=== PATIENT | male | born 1970 | race Caucasian/White ===

== ENCOUNTER 2017-04-08 17:54 | Emergency (ER) | payer OTHER ==
[2017-04-08 17:59] VITALS: BP 158/119; PULSE 104; TEMP 97.9; BMI 41.5
--- NOTE | 2017-04-08 19:55 | PDOC ---
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 Patient denies any visual disturbance. Patient reports his eye just feels a steering and feels scratchy. REVIEW OF SYSTEMS: GENERAL/CONSTITUTIONAL: No fever or chills. No weakness. No weight change. HEAD, EYES, EARS, NOSE AND THROAT: No change in vision. Drainage and foreign body sensation to right eye. No ear pain or discharge. No sore throat. RESPIRATORY: No cough, wheezing, or hemoptysis. SKIN : No rash or easy bruising. NEUROLOGIC: No headache, vertigo, loss of consciousness, or loss of sensation. HEMATOLOGIC/LYMPHATIC: No lymphadenopathy ALLERGIC/IMMUNOLOGIC: No hives or skin allergy. No latex allergy. PHYSICAL EXAM: GENERAL: The patient is awake, alert, and fully oriented, in no acute distress. HEAD: Normal with no signs of trauma. EYES: Pupils equal, round and reactive to light, extraocular movements intact, sclera anicteric, conjunctiva clear, after fluorescein staining, no corneal abrasion noted. ENT: Ears normal, nares patent, oropharynx clear without exudates. Moist mucous membranes. NECK: Normal range of motion, supple without lymphadenopathy, JVD, or masses. LUNGS: Breath sounds equal, clear to auscultation bilaterally. No wheezes, and no crackles. NEUROLOGICAL: Cranial nerves II through XII grossly intact. Normal speech, normal gait. SKIN: No erythema no facial edema. Warm, Dry, normal turgor, no rashes or lesions noted. Past History - Past Medical History Allergies/Adverse Reactions: Allergies Allergy/AdvReac Type Severity Reaction Status Date / Time No Known Allergies Allergy Verified 04/08/17 17:56 Home Medications: Ambulatory Orders Polymyxin B Sulf/Trimethoprim [Polymyxin B-Tmp Eye Drops] 2 drop OD Q4H #1 drops 04/08/17 COPD: No Other medical history: DENIES. - Suicide/Smoking/Psychosocial Hx Smoking History: Current some day smoker Have you smoked in the past 12 months: Yes Information on smoking cessation initiated: No *Physical Exam - Vital Signs Last Vital Signs Temp Pulse Resp BP Pulse Ox 97.9 F 104 H 19 158/119 99 04/08/17 17:56 04/08/17 17:56 04/08/17 17:56 04/08/17 17:56 04/08/17 17:56 Medical Decision Making - Medical Decision Making 04/08/17 19:55 A/P: Patient here with foreign body sensation to right eye after fluorescein staining there is no foreign body or corneal abrasion noted, his eye feels irritated with no edema or erythema. No acuity is 20/20. I have paged Dr. Ulisses Fung, awaiting call back. There is no call back. I will discharge patient with polymixin, strict follow up tomorrow. He verbalized understanding. 04/08/17 20:04 *DC/Admit/Observation/Transfer Diagnosis at time of Disposition: Irritation of right eye - Discharge Dispostion Disposition: HOME Condition at time of disposition: Stable Admit: No - Prescriptions Prescriptions: Polymyxin B Sulf/Trimethoprim [Polymyxin B-Tmp Eye Drops] 2 drop OD Q4H #1 drops - Referrals Referrals: Ulisses Spears MD [Staff Physician] - - Patient Instructions Additional Instructions: Please call Dr. Schrader in the AM to be seen in the office. Apply medication as Prescribed. On physical examination and fluorescein staining, there is no corneal abrasion or foreign body noted. - Post Discharge Activity Forms/Work/School Notes: Back to Work
[2017-04-08] MEDS ORDERED: ERYTHROMYCIN 0.5% OPHTHALMIC OINTMENT 3.5 GM TUBE OD ONE (19:56)
[2017-04-08] MEDS ORDERED: ERYTHROMYCIN 0.5% OPHTHALMIC OINTMENT 3.5 GM TUBE ONE (20:01)
== END 2017-04-08 20:09 | disposition home or self-care (01) ==
LOC: JERFT 17:54
DX: H57.8 Other specified disorders of eye and adnexa (principal); W20.8XXA Other cause of strike by thrown, projected or falling object, initial encounter; Y93.89 Activity, other specified; Y92.9 Unspecified place or not applicable; Y99.0 Civilian activity done for income or pay
CPT/HCPCS: 99281-25

== ENCOUNTER 2021-02-21 09:56 | Emergency (ER) | payer OTHER ==
[2021-02-21 10:14] VITALS: BP 165/96; PULSE 105; TEMP 98.9; BMI 60.7
[2021-02-21] MEDS ORDERED: KETOROLAC TROMETHAMINE 60 MG/2 ML VIAL IM ONE (10:56)
== END 2021-02-21 12:05 | disposition home or self-care (01) ==
LOC: JERFT 09:56
PROC: 3E023GC Introduction of Other Therapeutic Substance into Muscle, Percutaneous Approach (ICD-10-PCS; principal; 2021-02-21)
DX: S05.02XA Injury of conjunctiva and corneal abrasion without foreign body, left eye, initial encounter (principal); Y04.8XXA Assault by other bodily force, initial encounter
CPT/HCPCS: 96372; 99284-25